=== PATIENT | male | born 1955 | race Two or more races ===

== ENCOUNTER 2020-10-20 12:00 | Outpatient (CLI) | payer MEDICARE | END 2020-10-20 23:59 | disposition home or self-care (01) | LOC: MSC 12:00 | PROVIDERS: ATTEND Internal Medicine | DX: I12.9 Hypertensive chronic kidney disease with stage 1 through stage 4 chronic kidney disease, or unspecified chronic kidney disease (principal); N18.32 Chronic kidney disease, stage 3b; N17.9 Acute kidney failure, unspecified; E87.1 Hypo-osmolality and hyponatremia; F10.10 Alcohol abuse, uncomplicated; D64.9 Anemia, unspecified; E83.9 Disorder of mineral metabolism, unspecified; M10.9 Gout, unspecified; M95.9 Acquired deformity of musculoskeletal system, unspecified ==

== ENCOUNTER → 2020-11-10 | Outpatient (CLI) | payer MEDICARE | END | disposition home or self-care (01) | LOC: MSC 15:00 | PROVIDERS: ATTEND Internal Medicine | DX: I12.9 Hypertensive chronic kidney disease with stage 1 through stage 4 chronic kidney disease, or unspecified chronic kidney disease (principal); N18.4 Chronic kidney disease, stage 4 (severe); N17.9 Acute kidney failure, unspecified; E87.1 Hypo-osmolality and hyponatremia; E87.6 Hypokalemia; D64.9 Anemia, unspecified; E83.9 Disorder of mineral metabolism, unspecified; M10.9 Gout, unspecified; M20.60 Acquired deformities of toe(s), unspecified, unspecified foot; F10.10 Alcohol abuse, uncomplicated; R53.81 Other malaise; Z79.899 Other long term (current) drug therapy ==

== ENCOUNTER 2020-11-24 12:00 | Outpatient (CLI) | payer MEDICARE | END 2020-11-24 23:59 | disposition home or self-care (01) | LOC: MSC 12:00 | PROVIDERS: ATTEND Internal Medicine | DX: K58.9 Irritable bowel syndrome, unspecified (principal); I12.9 Hypertensive chronic kidney disease with stage 1 through stage 4 chronic kidney disease, or unspecified chronic kidney disease; N18.32 Chronic kidney disease, stage 3b; N17.9 Acute kidney failure, unspecified; E87.1 Hypo-osmolality and hyponatremia; E87.6 Hypokalemia; D64.9 Anemia, unspecified; E83.9 Disorder of mineral metabolism, unspecified; M10.9 Gout, unspecified; M95.9 Acquired deformity of musculoskeletal system, unspecified; F10.10 Alcohol abuse, uncomplicated; R53.81 Other malaise ==

== ENCOUNTER 2020-12-29 09:00 | Outpatient (CLI) | payer MEDICARE ==
[2020-12-29 10:40] LABS: BASOPHILS # (AUTO) 0.1 K/uL (0.0-0.2); EOSINOPHILS % (AUTO) 4.4 % (0.0-6.0); HEMATOCRIT 38 % (39-51); HEMOGLOBIN 12.6 g/dL (13.5-17.5); LYMPHOCYTES # (AUTO) 1.4 K/uL (0.8-4.8); MEAN CORPUSCULAR HGB CONC 33 g/dl (31.0-36.0); MEAN CORPUSCULAR VOLUME 89 fL (80-96); MONOCYTES # (AUTO) 0.4 K/uL (0.1-1.30); MONOCYTES % (AUTO) 4.6 % (2.0-12.0); NEUTROPHILS # (AUTO) 5.5 K/uL (1.8-8.9); PLATELET COUNT (AUTO) 488 K/uL (150-450); RED BLOOD CELL COUNT(AUTO) 4.25 MIL/uL (4.5-6.0); WHITE BLOOD COUNT (AUTO) 7.6 K/uL (4.3-11.0)
[2020-12-29 11:56] LABS: THYROID STIMULATING HORMONE 2.99 uIU/mL (0.358-3.74); URIC ACID 9.7 mg/dL (2.6-7.2)
[2020-12-29 12:02] LABS: BILIRUBIN,TOTAL 0.5 mg/dL (0.2-1.0); CREATININE 1.3 mg/dL (0.6-1.3); MAGNESIUM 1.7 mg/dL (1.8-2.4); PHOSPHORUS 2.9 mg/dL (2.5-4.9); POTASSIUM 3.7 mmol/L (3.5-5.1); TOTAL PROTEIN, SERUM 7.9 g/dL (6.4-8.2)
[2020-12-29 12:17] LABS: C-REACTIVE PROTEIN 11.2 mg/dL (0.0-0.9)
== END 2020-12-29 23:59 | disposition home or self-care (01) ==
LOC: MSC 09:00
PROVIDERS: ATTEND Internal Medicine
DX: K58.9 Irritable bowel syndrome, unspecified (principal); I12.9 Hypertensive chronic kidney disease with stage 1 through stage 4 chronic kidney disease, or unspecified chronic kidney disease; N18.32 Chronic kidney disease, stage 3b; N17.9 Acute kidney failure, unspecified; E87.6 Hypokalemia; D64.9 Anemia, unspecified; E83.9 Disorder of mineral metabolism, unspecified; M10.9 Gout, unspecified; M21.90 Unspecified acquired deformity of unspecified limb; F10.129 Alcohol abuse with intoxication, unspecified; R53.81 Other malaise
CPT/HCPCS: 36415; 80053; 80061; 82306; 82607; 83036; 83735; 84100; 84443; 84550; 85025; 85652; 86140; G0463

== ENCOUNTER → 2021-01-11 | Outpatient (CLI) | payer MEDICARE | END | disposition home or self-care (01) | LOC: MSC 14:45 | PROVIDERS: ATTEND Internal Medicine | DX: M10.9 Gout, unspecified (principal); M20.60 Acquired deformities of toe(s), unspecified, unspecified foot; K58.1 Irritable bowel syndrome with constipation; I12.9 Hypertensive chronic kidney disease with stage 1 through stage 4 chronic kidney disease, or unspecified chronic kidney disease; N18.4 Chronic kidney disease, stage 4 (severe); N17.9 Acute kidney failure, unspecified; E87.6 Hypokalemia; D64.9 Anemia, unspecified; E83.9 Disorder of mineral metabolism, unspecified; F10.10 Alcohol abuse, uncomplicated; R53.81 Other malaise; Z79.84 Long term (current) use of oral hypoglycemic drugs; Z79.899 Other long term (current) drug therapy ==

== ENCOUNTER 2021-01-24 14:00 | Outpatient (CLI) | payer MEDICARE | END 2021-01-24 23:59 | disposition home or self-care (01) | LOC: MSC 14:00 | PROVIDERS: ATTEND Internal Medicine | DX: R10.13 Epigastric pain (principal); R05 Cough; M10.9 Gout, unspecified; M20.60 Acquired deformities of toe(s), unspecified, unspecified foot; K59.00 Constipation, unspecified; K58.1 Irritable bowel syndrome with constipation; I12.9 Hypertensive chronic kidney disease with stage 1 through stage 4 chronic kidney disease, or unspecified chronic kidney disease; N18.4 Chronic kidney disease, stage 4 (severe); N17.9 Acute kidney failure, unspecified; E87.6 Hypokalemia; D64.9 Anemia, unspecified; E83.9 Disorder of mineral metabolism, unspecified; F10.10 Alcohol abuse, uncomplicated; R53.81 Other malaise; Z79.84 Long term (current) use of oral hypoglycemic drugs; Z79.899 Other long term (current) drug therapy ==

== ENCOUNTER 2021-01-31 10:00 | Outpatient (CLI) | payer MEDICARE | END 2021-01-31 23:59 | disposition home or self-care (01) | LOC: MSC 10:00 | PROVIDERS: ATTEND Internal Medicine | DX: R05 Cough (principal); Z86.16 Personal history of COVID-19; R10.13 Epigastric pain; M10.9 Gout, unspecified; M20.60 Acquired deformities of toe(s), unspecified, unspecified foot; K59.00 Constipation, unspecified; K58.8 Other irritable bowel syndrome; I12.9 Hypertensive chronic kidney disease with stage 1 through stage 4 chronic kidney disease, or unspecified chronic kidney disease; N18.4 Chronic kidney disease, stage 4 (severe); N17.9 Acute kidney failure, unspecified; E87.6 Hypokalemia; D64.9 Anemia, unspecified; E83.9 Disorder of mineral metabolism, unspecified; F10.10 Alcohol abuse, uncomplicated; R53.81 Other malaise; Z79.84 Long term (current) use of oral hypoglycemic drugs; Z79.899 Other long term (current) drug therapy ==

== ENCOUNTER → 2021-02-07 | Outpatient (CLI) | payer MEDICARE, OTHER | END | disposition home or self-care (01) | LOC: MSC 10:00 | PROVIDERS: ATTEND Internal Medicine | DX: A04.9 Bacterial intestinal infection, unspecified (principal); Z86.16 Personal history of COVID-19; R10.13 Epigastric pain; M10.9 Gout, unspecified; M20.60 Acquired deformities of toe(s), unspecified, unspecified foot; R05 Cough; K59.00 Constipation, unspecified; K58.9 Irritable bowel syndrome, unspecified; I12.9 Hypertensive chronic kidney disease with stage 1 through stage 4 chronic kidney disease, or unspecified chronic kidney disease; N18.4 Chronic kidney disease, stage 4 (severe); N17.9 Acute kidney failure, unspecified; E87.6 Hypokalemia; D64.9 Anemia, unspecified; E83.9 Disorder of mineral metabolism, unspecified; F10.10 Alcohol abuse, uncomplicated; R53.81 Other malaise; Z79.84 Long term (current) use of oral hypoglycemic drugs; Z79.899 Other long term (current) drug therapy ==

== ENCOUNTER → 2021-02-14 | Outpatient (CLI) | payer MEDICARE, OTHER | END | disposition home or self-care (01) | LOC: MSC 14:45 | PROVIDERS: ATTEND Internal Medicine | DX: A04.9 Bacterial intestinal infection, unspecified (principal); Z86.16 Personal history of COVID-19; R10.13 Epigastric pain; M10.9 Gout, unspecified; M20.60 Acquired deformities of toe(s), unspecified, unspecified foot; R05 Cough; K59.00 Constipation, unspecified; K58.9 Irritable bowel syndrome, unspecified; I12.9 Hypertensive chronic kidney disease with stage 1 through stage 4 chronic kidney disease, or unspecified chronic kidney disease; N18.4 Chronic kidney disease, stage 4 (severe); N17.9 Acute kidney failure, unspecified; E87.6 Hypokalemia; D64.9 Anemia, unspecified; E83.9 Disorder of mineral metabolism, unspecified; F10.10 Alcohol abuse, uncomplicated; R53.81 Other malaise; Z79.84 Long term (current) use of oral hypoglycemic drugs; Z79.899 Other long term (current) drug therapy ==

== ENCOUNTER 2021-02-21 10:15 | Outpatient (CLI) | payer MEDICARE, OTHER | END 2021-02-21 23:59 | disposition home or self-care (01) | LOC: MSC 10:15 | PROVIDERS: ATTEND Internal Medicine | DX: A04.9 Bacterial intestinal infection, unspecified (principal); Z86.16 Personal history of COVID-19; R10.13 Epigastric pain; M10.9 Gout, unspecified; M20.60 Acquired deformities of toe(s), unspecified, unspecified foot; R05.9 Cough, unspecified; K59.00 Constipation, unspecified; K58.9 Irritable bowel syndrome, unspecified; I12.9 Hypertensive chronic kidney disease with stage 1 through stage 4 chronic kidney disease, or unspecified chronic kidney disease; N18.4 Chronic kidney disease, stage 4 (severe); N17.9 Acute kidney failure, unspecified; E87.6 Hypokalemia; D64.9 Anemia, unspecified; E83.9 Disorder of mineral metabolism, unspecified; F10.10 Alcohol abuse, uncomplicated; R53.81 Other malaise; Z79.84 Long term (current) use of oral hypoglycemic drugs; Z79.899 Other long term (current) drug therapy ==

== ENCOUNTER → 2021-03-02 | Outpatient (CLI) | payer MEDICARE, OTHER | END | disposition home or self-care (01) | LOC: MSC 14:00 | PROVIDERS: ATTEND Internal Medicine | DX: A04.9 Bacterial intestinal infection, unspecified (principal); Z86.16 Personal history of COVID-19; R10.13 Epigastric pain; M10.9 Gout, unspecified; M20.60 Acquired deformities of toe(s), unspecified, unspecified foot; R05.9 Cough, unspecified; K59.00 Constipation, unspecified; K58.9 Irritable bowel syndrome, unspecified; I12.9 Hypertensive chronic kidney disease with stage 1 through stage 4 chronic kidney disease, or unspecified chronic kidney disease; N18.4 Chronic kidney disease, stage 4 (severe); N17.9 Acute kidney failure, unspecified; E87.6 Hypokalemia; D64.9 Anemia, unspecified; E83.9 Disorder of mineral metabolism, unspecified; M89.9 Disorder of bone, unspecified; F10.10 Alcohol abuse, uncomplicated; R53.81 Other malaise; Z79.84 Long term (current) use of oral hypoglycemic drugs; Z79.899 Other long term (current) drug therapy ==

== ENCOUNTER → 2021-03-21 | Outpatient (CLI) | payer MEDICARE, OTHER | END | disposition home or self-care (01) | LOC: MSC 14:30 | PROVIDERS: ATTEND Internal Medicine | DX: S91.109A Unspecified open wound of unspecified toe(s) without damage to nail, initial encounter (principal); A04.9 Bacterial intestinal infection, unspecified; Z86.16 Personal history of COVID-19; R10.13 Epigastric pain; M10.9 Gout, unspecified; M20.60 Acquired deformities of toe(s), unspecified, unspecified foot; R05.9 Cough, unspecified; K59.00 Constipation, unspecified; I12.9 Hypertensive chronic kidney disease with stage 1 through stage 4 chronic kidney disease, or unspecified chronic kidney disease; N18.4 Chronic kidney disease, stage 4 (severe); N17.9 Acute kidney failure, unspecified; K58.9 Irritable bowel syndrome, unspecified; E87.6 Hypokalemia; D64.9 Anemia, unspecified; E83.9 Disorder of mineral metabolism, unspecified; M89.9 Disorder of bone, unspecified; F10.10 Alcohol abuse, uncomplicated; R53.81 Other malaise; Z79.84 Long term (current) use of oral hypoglycemic drugs; Z79.899 Other long term (current) drug therapy ==

== ENCOUNTER 2021-03-31 13:00 | Outpatient (CLI) | payer MEDICARE, OTHER | END 2021-03-31 23:59 | disposition home or self-care (01) | LOC: MSC 13:00 | PROVIDERS: ATTEND Internal Medicine | DX: R10.13 Epigastric pain (principal); A04.9 Bacterial intestinal infection, unspecified; Z86.16 Personal history of COVID-19; M10.9 Gout, unspecified; M20.60 Acquired deformities of toe(s), unspecified, unspecified foot; R05.9 Cough, unspecified; K59.00 Constipation, unspecified; K58.9 Irritable bowel syndrome, unspecified; I12.9 Hypertensive chronic kidney disease with stage 1 through stage 4 chronic kidney disease, or unspecified chronic kidney disease; N18.4 Chronic kidney disease, stage 4 (severe); N17.9 Acute kidney failure, unspecified; E87.6 Hypokalemia; D64.9 Anemia, unspecified; E83.9 Disorder of mineral metabolism, unspecified; M89.9 Disorder of bone, unspecified; F10.10 Alcohol abuse, uncomplicated; R53.81 Other malaise; Z79.84 Long term (current) use of oral hypoglycemic drugs; Z79.899 Other long term (current) drug therapy ==

== ENCOUNTER 2021-04-18 09:30 | Outpatient (CLI) | payer MEDICARE, OTHER | END 2021-04-18 23:59 | disposition home or self-care (01) | LOC: MSC 09:30 | PROVIDERS: ATTEND Internal Medicine | DX: A04.9 Bacterial intestinal infection, unspecified (principal); M54.9 Dorsalgia, unspecified; Z86.16 Personal history of COVID-19; M10.9 Gout, unspecified; M20.60 Acquired deformities of toe(s), unspecified, unspecified foot; K58.9 Irritable bowel syndrome, unspecified; I12.9 Hypertensive chronic kidney disease with stage 1 through stage 4 chronic kidney disease, or unspecified chronic kidney disease; N18.4 Chronic kidney disease, stage 4 (severe); N17.9 Acute kidney failure, unspecified; D64.9 Anemia, unspecified; E83.9 Disorder of mineral metabolism, unspecified; M89.9 Disorder of bone, unspecified; F10.10 Alcohol abuse, uncomplicated; R53.81 Other malaise; Z79.84 Long term (current) use of oral hypoglycemic drugs; Z79.899 Other long term (current) drug therapy ==

== ENCOUNTER 2021-04-28 09:57 | Outpatient (CLI) | payer MEDICARE, OTHER | END 2021-04-28 23:59 | disposition home or self-care (01) | LOC: CT 09:57 | PROVIDERS: ATTEND Internal Medicine | DX: K40.90 Unilateral inguinal hernia, without obstruction or gangrene, not specified as recurrent (principal); N28.1 Cyst of kidney, acquired; K59.00 Constipation, unspecified; K57.90 Diverticulosis of intestine, part unspecified, without perforation or abscess without bleeding; M47.819 Spondylosis without myelopathy or radiculopathy, site unspecified; Z96.642 Presence of left artificial hip joint ==

== ENCOUNTER → 2021-05-01 | Outpatient (CLI) | payer MEDICARE, OTHER | END | disposition home or self-care (01) | LOC: MSC 16:45 | PROVIDERS: ATTEND Internal Medicine | DX: N28.89 Other specified disorders of kidney and ureter (principal); M54.9 Dorsalgia, unspecified; A04.9 Bacterial intestinal infection, unspecified; Z86.16 Personal history of COVID-19; R10.13 Epigastric pain; M10.9 Gout, unspecified; M20.60 Acquired deformities of toe(s), unspecified, unspecified foot; R05.9 Cough, unspecified; K59.00 Constipation, unspecified; K58.9 Irritable bowel syndrome, unspecified; I12.9 Hypertensive chronic kidney disease with stage 1 through stage 4 chronic kidney disease, or unspecified chronic kidney disease; N18.4 Chronic kidney disease, stage 4 (severe); N17.9 Acute kidney failure, unspecified; E87.6 Hypokalemia; D64.9 Anemia, unspecified; E83.9 Disorder of mineral metabolism, unspecified; M89.9 Disorder of bone, unspecified; F10.10 Alcohol abuse, uncomplicated; R53.81 Other malaise; Z79.84 Long term (current) use of oral hypoglycemic drugs; Z79.899 Other long term (current) drug therapy ==

== ENCOUNTER → 2021-05-03 | Outpatient (CLI) | payer MEDICARE, OTHER | END | disposition home or self-care (01) | LOC: MSC 14:30 | PROVIDERS: ATTEND Internal Medicine | DX: N28.89 Other specified disorders of kidney and ureter (principal); A04.9 Bacterial intestinal infection, unspecified; M54.9 Dorsalgia, unspecified; Z86.16 Personal history of COVID-19; R10.13 Epigastric pain; M10.9 Gout, unspecified; M20.60 Acquired deformities of toe(s), unspecified, unspecified foot; K59.00 Constipation, unspecified; K58.9 Irritable bowel syndrome, unspecified; I12.9 Hypertensive chronic kidney disease with stage 1 through stage 4 chronic kidney disease, or unspecified chronic kidney disease; N18.4 Chronic kidney disease, stage 4 (severe); N17.9 Acute kidney failure, unspecified; E87.6 Hypokalemia; D64.9 Anemia, unspecified; E83.9 Disorder of mineral metabolism, unspecified; M89.9 Disorder of bone, unspecified; F10.10 Alcohol abuse, uncomplicated; R53.81 Other malaise; Z79.84 Long term (current) use of oral hypoglycemic drugs; Z79.899 Other long term (current) drug therapy ==

== ENCOUNTER 2021-05-09 09:33 | Outpatient (CLI) | payer MEDICARE, OTHER ==
[2021-05-09] MEDS ORDERED: IV NS 0.9% 250 ML IV ONE (10:01)
[2021-05-09] MEDS ORDERED: IOHEXOL-350 100 ML VIAL IV ONE (10:01)
[2021-05-09] MEDS ORDERED: CT SWABBABLE VALVE TRANS SET 1 EA INFUS.SET MC ONE (10:01)
== END 2021-05-09 23:59 | disposition home or self-care (01) ==
LOC: CT 09:33
PROVIDERS: ATTEND Internal Medicine
DX: N28.1 Cyst of kidney, acquired (principal); K57.30 Diverticulosis of large intestine without perforation or abscess without bleeding; N28.89 Other specified disorders of kidney and ureter; M47.815 Spondylosis without myelopathy or radiculopathy, thoracolumbar region; M48.05 Spinal stenosis, thoracolumbar region; Z96.642 Presence of left artificial hip joint
CPT/HCPCS: 74178; J7050; Q9967

== ENCOUNTER 2021-05-16 14:00 | Outpatient (CLI) | payer MEDICARE, OTHER | END 2021-05-16 23:59 | disposition home or self-care (01) | LOC: MSC 14:00 | PROVIDERS: ATTEND Internal Medicine | DX: N28.89 Other specified disorders of kidney and ureter (principal); M54.9 Dorsalgia, unspecified; A04.9 Bacterial intestinal infection, unspecified; Z86.16 Personal history of COVID-19; R10.13 Epigastric pain; M10.9 Gout, unspecified; M20.60 Acquired deformities of toe(s), unspecified, unspecified foot; K59.00 Constipation, unspecified; K58.9 Irritable bowel syndrome, unspecified; I12.9 Hypertensive chronic kidney disease with stage 1 through stage 4 chronic kidney disease, or unspecified chronic kidney disease; N18.4 Chronic kidney disease, stage 4 (severe); N17.9 Acute kidney failure, unspecified; E87.6 Hypokalemia; D64.9 Anemia, unspecified; E83.9 Disorder of mineral metabolism, unspecified; M89.9 Disorder of bone, unspecified; F10.10 Alcohol abuse, uncomplicated; R53.81 Other malaise; Z79.84 Long term (current) use of oral hypoglycemic drugs; Z79.899 Other long term (current) drug therapy ==

== ENCOUNTER → 2021-05-25 | Outpatient (CLI) | payer MEDICARE, OTHER | END | disposition home or self-care (01) | LOC: MSC 14:00 | PROVIDERS: ATTEND Internal Medicine | DX: A04.9 Bacterial intestinal infection, unspecified (principal); R10.13 Epigastric pain; N28.89 Other specified disorders of kidney and ureter; M54.9 Dorsalgia, unspecified; Z86.16 Personal history of COVID-19; M10.9 Gout, unspecified; M20.60 Acquired deformities of toe(s), unspecified, unspecified foot; K59.00 Constipation, unspecified; K58.9 Irritable bowel syndrome, unspecified; I12.9 Hypertensive chronic kidney disease with stage 1 through stage 4 chronic kidney disease, or unspecified chronic kidney disease; N18.4 Chronic kidney disease, stage 4 (severe); N17.9 Acute kidney failure, unspecified; D64.9 Anemia, unspecified; E83.9 Disorder of mineral metabolism, unspecified; M89.9 Disorder of bone, unspecified; F10.10 Alcohol abuse, uncomplicated; R53.81 Other malaise; Z79.84 Long term (current) use of oral hypoglycemic drugs; Z79.899 Other long term (current) drug therapy ==

== ENCOUNTER 2021-06-06 10:15 | Outpatient (CLI) | payer MEDICARE, OTHER | END 2021-06-06 23:59 | disposition home or self-care (01) | LOC: MSC 10:15 | PROVIDERS: ATTEND Internal Medicine | DX: R10.13 Epigastric pain (principal); R14.0 Abdominal distension (gaseous); A04.9 Bacterial intestinal infection, unspecified; N28.89 Other specified disorders of kidney and ureter; M54.9 Dorsalgia, unspecified; Z86.16 Personal history of COVID-19; M10.9 Gout, unspecified; M20.60 Acquired deformities of toe(s), unspecified, unspecified foot; K59.00 Constipation, unspecified; K58.9 Irritable bowel syndrome, unspecified; I12.9 Hypertensive chronic kidney disease with stage 1 through stage 4 chronic kidney disease, or unspecified chronic kidney disease; N18.4 Chronic kidney disease, stage 4 (severe); N17.9 Acute kidney failure, unspecified; E87.6 Hypokalemia; D64.9 Anemia, unspecified; E83.9 Disorder of mineral metabolism, unspecified; M89.9 Disorder of bone, unspecified; F10.10 Alcohol abuse, uncomplicated; R53.81 Other malaise ==

== ENCOUNTER 2021-06-15 14:30 | Outpatient (CLI) | payer MEDICARE, OTHER | END 2021-06-15 23:59 | disposition home or self-care (01) | LOC: MSC 14:30 | PROVIDERS: ATTEND Internal Medicine | DX: N28.89 Other specified disorders of kidney and ureter (principal); K40.90 Unilateral inguinal hernia, without obstruction or gangrene, not specified as recurrent; M54.9 Dorsalgia, unspecified; Z86.16 Personal history of COVID-19; R10.13 Epigastric pain; M10.9 Gout, unspecified; M20.60 Acquired deformities of toe(s), unspecified, unspecified foot; K59.00 Constipation, unspecified; K58.9 Irritable bowel syndrome, unspecified; I12.9 Hypertensive chronic kidney disease with stage 1 through stage 4 chronic kidney disease, or unspecified chronic kidney disease; N18.4 Chronic kidney disease, stage 4 (severe); N17.9 Acute kidney failure, unspecified; D64.9 Anemia, unspecified; E83.9 Disorder of mineral metabolism, unspecified; M89.9 Disorder of bone, unspecified; F10.10 Alcohol abuse, uncomplicated; R53.81 Other malaise ==

== ENCOUNTER → 2021-06-22 | Outpatient (CLI) | payer MEDICARE, OTHER | END | disposition home or self-care (01) | LOC: MSC 12:00 | PROVIDERS: ATTEND Internal Medicine | DX: R10.13 Epigastric pain (principal); K40.90 Unilateral inguinal hernia, without obstruction or gangrene, not specified as recurrent; G89.29 Other chronic pain; A04.9 Bacterial intestinal infection, unspecified; N28.89 Other specified disorders of kidney and ureter; M54.9 Dorsalgia, unspecified; Z86.16 Personal history of COVID-19; M10.9 Gout, unspecified; M20.60 Acquired deformities of toe(s), unspecified, unspecified foot; K59.00 Constipation, unspecified; K58.9 Irritable bowel syndrome, unspecified; I12.9 Hypertensive chronic kidney disease with stage 1 through stage 4 chronic kidney disease, or unspecified chronic kidney disease; N18.4 Chronic kidney disease, stage 4 (severe); N17.9 Acute kidney failure, unspecified; D64.9 Anemia, unspecified; E83.9 Disorder of mineral metabolism, unspecified; M89.9 Disorder of bone, unspecified; F10.10 Alcohol abuse, uncomplicated; R53.81 Other malaise ==

== ENCOUNTER 2021-07-04 09:00 | Outpatient (CLI) | payer MEDICARE, OTHER | END 2021-07-04 23:59 | disposition home or self-care (01) | LOC: MSC 09:00 | PROVIDERS: ATTEND Internal Medicine | DX: M10.9 Gout, unspecified (principal); M21.90 Unspecified acquired deformity of unspecified limb; R10.13 Epigastric pain; G89.29 Other chronic pain; A04.9 Bacterial intestinal infection, unspecified; N28.89 Other specified disorders of kidney and ureter; M54.9 Dorsalgia, unspecified; K40.90 Unilateral inguinal hernia, without obstruction or gangrene, not specified as recurrent; K50.90 Crohn's disease, unspecified, without complications; Z86.16 Personal history of COVID-19; K59.00 Constipation, unspecified; I12.9 Hypertensive chronic kidney disease with stage 1 through stage 4 chronic kidney disease, or unspecified chronic kidney disease; N18.4 Chronic kidney disease, stage 4 (severe); N17.9 Acute kidney failure, unspecified; D64.9 Anemia, unspecified; E83.9 Disorder of mineral metabolism, unspecified; M89.9 Disorder of bone, unspecified; F10.10 Alcohol abuse, uncomplicated; R53.81 Other malaise ==

== ENCOUNTER → 2021-07-06 | Outpatient (CLI) | payer MEDICARE, OTHER | END | disposition home or self-care (01) | LOC: MSC 14:00 | PROVIDERS: ATTEND Internal Medicine | DX: L29.9 Pruritus, unspecified (principal); R10.13 Epigastric pain; M10.9 Gout, unspecified; M21.90 Unspecified acquired deformity of unspecified limb; G89.29 Other chronic pain; A04.9 Bacterial intestinal infection, unspecified; N28.89 Other specified disorders of kidney and ureter; M54.9 Dorsalgia, unspecified; K40.90 Unilateral inguinal hernia, without obstruction or gangrene, not specified as recurrent; K50.90 Crohn's disease, unspecified, without complications; Z86.16 Personal history of COVID-19; K59.00 Constipation, unspecified; I12.9 Hypertensive chronic kidney disease with stage 1 through stage 4 chronic kidney disease, or unspecified chronic kidney disease; N18.4 Chronic kidney disease, stage 4 (severe); N17.9 Acute kidney failure, unspecified; D64.9 Anemia, unspecified; E83.9 Disorder of mineral metabolism, unspecified; M89.9 Disorder of bone, unspecified; F10.10 Alcohol abuse, uncomplicated; R53.81 Other malaise ==

== ENCOUNTER 2021-07-20 11:30 | Outpatient (CLI) | payer MEDICARE, OTHER | END 2021-07-20 23:59 | disposition home or self-care (01) | LOC: MSC 11:30 | PROVIDERS: ATTEND Internal Medicine | DX: K59.00 Constipation, unspecified (principal); R10.13 Epigastric pain; M10.9 Gout, unspecified; M21.90 Unspecified acquired deformity of unspecified limb; G89.29 Other chronic pain; A04.9 Bacterial intestinal infection, unspecified; N28.89 Other specified disorders of kidney and ureter; M54.9 Dorsalgia, unspecified; K40.90 Unilateral inguinal hernia, without obstruction or gangrene, not specified as recurrent; Z86.16 Personal history of COVID-19; K58.9 Irritable bowel syndrome, unspecified; I12.9 Hypertensive chronic kidney disease with stage 1 through stage 4 chronic kidney disease, or unspecified chronic kidney disease; N18.4 Chronic kidney disease, stage 4 (severe); N17.9 Acute kidney failure, unspecified; D64.9 Anemia, unspecified; E83.9 Disorder of mineral metabolism, unspecified; M89.9 Disorder of bone, unspecified; F10.10 Alcohol abuse, uncomplicated; R53.81 Other malaise ==

== ENCOUNTER 2021-07-25 10:42 | Outpatient (CLI) | payer MEDICARE, OTHER ==
[2021-07-25 12:13] LABS: BASOPHILS % (AUTO) 0.3 % (0.0-2.0); EOSINOPHILS % (AUTO) 3.2 % (0.0-6.0); HEMATOCRIT 44 % (39-51); HEMOGLOBIN 14.2 g/dL (13.5-17.5); LYMPHOCYTES # (AUTO) 2.1 K/uL (0.8-4.8); LYMPHOCYTES % (AUTO) 26.6 % (20.0-44.0); MEAN CORPUSCULAR HGB CONC 32 g/dl (31.0-36.0); MEAN CORPUSCULAR VOLUME 84 fL (80-96); MONOCYTES # (AUTO) 0.3 K/uL (0.1-1.30); MONOCYTES % (AUTO) 4.3 % (2.0-12.0); NEUTROPHILS # (AUTO) 5.3 K/uL (1.8-8.9); NEUTROPHILS % (AUTO) 65.6 % (43.0-81.0); PLATELET COUNT (AUTO) 344 K/uL (150-450); RED BLOOD CELL COUNT(AUTO) 5.23 MIL/uL (4.5-6.0)
[2021-07-25 12:44] LABS: C-REACTIVE PROTEIN 0.2 mg/dL (0.0-0.9); FREE T4 (FREE THYROXINE) 0.87 ng/dL (0.76-1.46); THYROID STIMULATING HORMONE 3.598 uIU/mL (0.358-3.74); URIC ACID 7.4 mg/dL (2.6-7.2)
[2021-07-25 12:58] LABS: ALBUMIN 3.8 g/dL (3.4-5.0); BILIRUBIN,TOTAL 0.4 mg/dL (0.2-1.0); CALCIUM, SERUM 9.2 mg/dL (8.5-10.1); CREATININE 1.4 mg/dL (0.6-1.3); MAGNESIUM 2.3 mg/dL (1.8-2.4); PHOSPHORUS 3.2 mg/dL (2.5-4.9); POTASSIUM 3.9 mmol/L (3.5-5.1); TOTAL PROTEIN, SERUM 8.5 g/dL (6.4-8.2)
== END 2021-07-25 23:59 | disposition home or self-care (01) ==
LOC: MSC 10:42
PROVIDERS: ATTEND Internal Medicine
DX: R42 Dizziness and giddiness (principal); M10.9 Gout, unspecified; M21.90 Unspecified acquired deformity of unspecified limb; R10.13 Epigastric pain; G89.29 Other chronic pain; A04.9 Bacterial intestinal infection, unspecified; N28.89 Other specified disorders of kidney and ureter; M54.9 Dorsalgia, unspecified; K40.90 Unilateral inguinal hernia, without obstruction or gangrene, not specified as recurrent; Z86.16 Personal history of COVID-19; K58.9 Irritable bowel syndrome, unspecified; I12.9 Hypertensive chronic kidney disease with stage 1 through stage 4 chronic kidney disease, or unspecified chronic kidney disease; N18.4 Chronic kidney disease, stage 4 (severe); N17.9 Acute kidney failure, unspecified; D64.9 Anemia, unspecified; E83.9 Disorder of mineral metabolism, unspecified; M89.9 Disorder of bone, unspecified; F10.10 Alcohol abuse, uncomplicated; R53.81 Other malaise; Z79.899 Other long term (current) drug therapy
CPT/HCPCS: 36415; 80053; 82607; 82746; 83036; 83735; 84100; 84439; 84443; 84550; 85025; 86140; 93005; G0463

== ENCOUNTER 2021-07-31 09:29 | Outpatient (CLI) | payer MEDICARE, OTHER | END 2021-07-31 23:59 | disposition home or self-care (01) | LOC: CT 09:29 | PROVIDERS: ATTEND Internal Medicine | DX: R42 Dizziness and giddiness (principal) | CPT/HCPCS: 70450-TC ==

== ENCOUNTER 2021-08-03 10:30 | Outpatient (CLI) | payer MEDICARE, OTHER | END 2021-08-03 23:59 | disposition home or self-care (01) | LOC: MSC 10:30 | PROVIDERS: ATTEND Internal Medicine | DX: E87.1 Hypo-osmolality and hyponatremia (principal); I12.9 Hypertensive chronic kidney disease with stage 1 through stage 4 chronic kidney disease, or unspecified chronic kidney disease; N18.4 Chronic kidney disease, stage 4 (severe); N17.9 Acute kidney failure, unspecified; M10.9 Gout, unspecified; M21.90 Unspecified acquired deformity of unspecified limb; R10.13 Epigastric pain; G89.29 Other chronic pain; A04.9 Bacterial intestinal infection, unspecified; N28.89 Other specified disorders of kidney and ureter; M54.9 Dorsalgia, unspecified; K40.90 Unilateral inguinal hernia, without obstruction or gangrene, not specified as recurrent; Z86.16 Personal history of COVID-19; K58.9 Irritable bowel syndrome, unspecified; D64.9 Anemia, unspecified; E83.9 Disorder of mineral metabolism, unspecified; M89.9 Disorder of bone, unspecified; F10.10 Alcohol abuse, uncomplicated; R53.81 Other malaise; Z79.899 Other long term (current) drug therapy ==

== ENCOUNTER → 2021-08-15 | Outpatient (CLI) | payer MEDICARE, OTHER | END | disposition home or self-care (01) | LOC: MSC 14:30 | PROVIDERS: ATTEND Internal Medicine | DX: L98.8 Other specified disorders of the skin and subcutaneous tissue (principal); E87.1 Hypo-osmolality and hyponatremia; M10.9 Gout, unspecified; M21.90 Unspecified acquired deformity of unspecified limb; R10.13 Epigastric pain; G89.29 Other chronic pain; A04.9 Bacterial intestinal infection, unspecified; I12.9 Hypertensive chronic kidney disease with stage 1 through stage 4 chronic kidney disease, or unspecified chronic kidney disease; N18.4 Chronic kidney disease, stage 4 (severe); N17.9 Acute kidney failure, unspecified; N28.89 Other specified disorders of kidney and ureter; M54.9 Dorsalgia, unspecified; K40.90 Unilateral inguinal hernia, without obstruction or gangrene, not specified as recurrent; Z86.16 Personal history of COVID-19; K58.9 Irritable bowel syndrome, unspecified; D64.9 Anemia, unspecified; E83.9 Disorder of mineral metabolism, unspecified; M89.9 Disorder of bone, unspecified; F10.10 Alcohol abuse, uncomplicated; R53.81 Other malaise; Z79.899 Other long term (current) drug therapy ==

== ENCOUNTER → 2021-10-10 | Outpatient (CLI) | payer MEDICARE, OTHER | END | disposition home or self-care (01) | LOC: MSC 14:00 | PROVIDERS: ATTEND Internal Medicine | DX: M79.603 Pain in arm, unspecified (principal); M54.2 Cervicalgia; N50.89 Other specified disorders of the male genital organs; L98.8 Other specified disorders of the skin and subcutaneous tissue; E87.1 Hypo-osmolality and hyponatremia; M10.9 Gout, unspecified; M21.90 Unspecified acquired deformity of unspecified limb; R10.13 Epigastric pain; G89.29 Other chronic pain; A04.9 Bacterial intestinal infection, unspecified; I12.9 Hypertensive chronic kidney disease with stage 1 through stage 4 chronic kidney disease, or unspecified chronic kidney disease; N18.4 Chronic kidney disease, stage 4 (severe); N17.9 Acute kidney failure, unspecified; N28.89 Other specified disorders of kidney and ureter; M54.9 Dorsalgia, unspecified; K40.90 Unilateral inguinal hernia, without obstruction or gangrene, not specified as recurrent; Z86.16 Personal history of COVID-19; K58.9 Irritable bowel syndrome, unspecified; D64.9 Anemia, unspecified; E83.9 Disorder of mineral metabolism, unspecified; M89.9 Disorder of bone, unspecified; F10.10 Alcohol abuse, uncomplicated; R53.81 Other malaise; Z79.899 Other long term (current) drug therapy ==

== ENCOUNTER → 2021-10-18 | Outpatient (CLI) | payer MEDICARE, OTHER | END | disposition home or self-care (01) | LOC: MSC 14:00 | PROVIDERS: ATTEND Internal Medicine | DX: R60.0 Localized edema (principal); L98.8 Other specified disorders of the skin and subcutaneous tissue; M10.9 Gout, unspecified; M21.90 Unspecified acquired deformity of unspecified limb; E87.1 Hypo-osmolality and hyponatremia; R10.13 Epigastric pain; G89.29 Other chronic pain; A04.9 Bacterial intestinal infection, unspecified; I12.9 Hypertensive chronic kidney disease with stage 1 through stage 4 chronic kidney disease, or unspecified chronic kidney disease; N18.4 Chronic kidney disease, stage 4 (severe); N17.9 Acute kidney failure, unspecified; N28.89 Other specified disorders of kidney and ureter; M54.9 Dorsalgia, unspecified; K40.90 Unilateral inguinal hernia, without obstruction or gangrene, not specified as recurrent; Z86.16 Personal history of COVID-19; K58.9 Irritable bowel syndrome, unspecified; D64.9 Anemia, unspecified; E83.9 Disorder of mineral metabolism, unspecified; M89.9 Disorder of bone, unspecified; F10.10 Alcohol abuse, uncomplicated; R53.81 Other malaise; Z79.899 Other long term (current) drug therapy ==

== ENCOUNTER → 2021-10-31 | Outpatient (CLI) | payer MEDICARE, OTHER | END | disposition home or self-care (01) | LOC: MSC 15:15 | PROVIDERS: ATTEND Internal Medicine | DX: J06.9 Acute upper respiratory infection, unspecified (principal); R60.0 Localized edema; T14.8XXD Other injury of unspecified body region, subsequent encounter; M10.9 Gout, unspecified; M21.90 Unspecified acquired deformity of unspecified limb; E87.1 Hypo-osmolality and hyponatremia; R10.13 Epigastric pain; G89.29 Other chronic pain; A04.9 Bacterial intestinal infection, unspecified; I12.9 Hypertensive chronic kidney disease with stage 1 through stage 4 chronic kidney disease, or unspecified chronic kidney disease; N18.4 Chronic kidney disease, stage 4 (severe); N17.9 Acute kidney failure, unspecified; N28.89 Other specified disorders of kidney and ureter; M54.9 Dorsalgia, unspecified; K40.90 Unilateral inguinal hernia, without obstruction or gangrene, not specified as recurrent; Z86.16 Personal history of COVID-19; K58.9 Irritable bowel syndrome, unspecified; D64.9 Anemia, unspecified; E83.9 Disorder of mineral metabolism, unspecified; M89.9 Disorder of bone, unspecified; F10.10 Alcohol abuse, uncomplicated; R53.81 Other malaise; Z79.899 Other long term (current) drug therapy ==

== ENCOUNTER → 2021-11-15 | Outpatient (CLI) | payer MEDICARE, OTHER | END | disposition home or self-care (01) | LOC: MSC 14:30 | PROVIDERS: ATTEND Internal Medicine | DX: R14.0 Abdominal distension (gaseous) (principal); R10.13 Epigastric pain; J06.9 Acute upper respiratory infection, unspecified; R60.0 Localized edema; T14.8XXD Other injury of unspecified body region, subsequent encounter; M1A.9XX1 Chronic gout, unspecified, with tophus (tophi); M21.90 Unspecified acquired deformity of unspecified limb; E87.1 Hypo-osmolality and hyponatremia; G89.29 Other chronic pain; A04.9 Bacterial intestinal infection, unspecified; I12.9 Hypertensive chronic kidney disease with stage 1 through stage 4 chronic kidney disease, or unspecified chronic kidney disease; N18.4 Chronic kidney disease, stage 4 (severe); N17.9 Acute kidney failure, unspecified; N28.89 Other specified disorders of kidney and ureter; M54.9 Dorsalgia, unspecified; K40.90 Unilateral inguinal hernia, without obstruction or gangrene, not specified as recurrent; Z86.16 Personal history of COVID-19; K58.9 Irritable bowel syndrome, unspecified; D64.9 Anemia, unspecified; E83.9 Disorder of mineral metabolism, unspecified; M89.9 Disorder of bone, unspecified; F10.10 Alcohol abuse, uncomplicated; R53.81 Other malaise; Z79.899 Other long term (current) drug therapy ==

== ENCOUNTER 2021-11-21 09:00 | Outpatient (CLI) | payer MEDICARE, OTHER | END 2021-11-21 23:59 | disposition home or self-care (01) | LOC: MSC 09:00 | PROVIDERS: ATTEND Internal Medicine | DX: R19.8 Other specified symptoms and signs involving the digestive system and abdomen (principal); R10.13 Epigastric pain; N28.89 Other specified disorders of kidney and ureter; R60.0 Localized edema; T14.8XXD Other injury of unspecified body region, subsequent encounter; M10.9 Gout, unspecified; M21.90 Unspecified acquired deformity of unspecified limb; E87.1 Hypo-osmolality and hyponatremia; G89.29 Other chronic pain; A04.9 Bacterial intestinal infection, unspecified; I12.9 Hypertensive chronic kidney disease with stage 1 through stage 4 chronic kidney disease, or unspecified chronic kidney disease; N18.4 Chronic kidney disease, stage 4 (severe); N17.9 Acute kidney failure, unspecified; M54.9 Dorsalgia, unspecified; K40.90 Unilateral inguinal hernia, without obstruction or gangrene, not specified as recurrent; Z86.16 Personal history of COVID-19; K58.9 Irritable bowel syndrome, unspecified; D64.9 Anemia, unspecified; E83.9 Disorder of mineral metabolism, unspecified; M89.9 Disorder of bone, unspecified; F10.10 Alcohol abuse, uncomplicated; R53.81 Other malaise; Z79.899 Other long term (current) drug therapy ==

== ENCOUNTER 2021-11-28 08:40 | Outpatient (CLI) | payer MEDICARE, OTHER | END 2021-11-28 23:59 | disposition home or self-care (01) | LOC: US 08:40 | PROVIDERS: ATTEND Internal Medicine | DX: K76.0 Fatty (change of) liver, not elsewhere classified (principal); N28.1 Cyst of kidney, acquired | CPT/HCPCS: 76700-TC ==

== ENCOUNTER → 2021-11-29 | Outpatient (CLI) | payer MEDICARE, OTHER | END | disposition home or self-care (01) | LOC: MSC 14:00 | PROVIDERS: ATTEND Internal Medicine | DX: R10.13 Epigastric pain (principal); N28.89 Other specified disorders of kidney and ureter; T14.8XXD Other injury of unspecified body region, subsequent encounter; M10.9 Gout, unspecified; M21.90 Unspecified acquired deformity of unspecified limb; E87.1 Hypo-osmolality and hyponatremia; G89.29 Other chronic pain; A04.9 Bacterial intestinal infection, unspecified; K40.90 Unilateral inguinal hernia, without obstruction or gangrene, not specified as recurrent; I12.9 Hypertensive chronic kidney disease with stage 1 through stage 4 chronic kidney disease, or unspecified chronic kidney disease; N18.4 Chronic kidney disease, stage 4 (severe); N17.9 Acute kidney failure, unspecified; M54.9 Dorsalgia, unspecified; Z86.16 Personal history of COVID-19; K58.9 Irritable bowel syndrome, unspecified; D64.9 Anemia, unspecified; E83.9 Disorder of mineral metabolism, unspecified; M89.9 Disorder of bone, unspecified; F10.10 Alcohol abuse, uncomplicated; R53.81 Other malaise ==

== ENCOUNTER 2021-12-08 08:34 | Outpatient (CLI) | payer MEDICARE, OTHER | END 2021-12-08 23:59 | disposition home or self-care (01) | LOC: CT 08:34 | PROVIDERS: ATTEND Internal Medicine | DX: K57.30 Diverticulosis of large intestine without perforation or abscess without bleeding (principal); N28.89 Other specified disorders of kidney and ureter; K63.89 Other specified diseases of intestine; I70.0 Atherosclerosis of aorta; K40.90 Unilateral inguinal hernia, without obstruction or gangrene, not specified as recurrent; M47.819 Spondylosis without myelopathy or radiculopathy, site unspecified; Z96.642 Presence of left artificial hip joint ==

== ENCOUNTER 2021-12-20 15:00 | Outpatient (CLI) | payer MEDICARE, OTHER | END 2021-12-20 23:59 | disposition home or self-care (01) | LOC: MSC 15:00 | PROVIDERS: ATTEND Internal Medicine | DX: R10.13 Epigastric pain (principal); R14.3 Flatulence; N28.89 Other specified disorders of kidney and ureter; T14.8XXD Other injury of unspecified body region, subsequent encounter; M10.9 Gout, unspecified; M21.90 Unspecified acquired deformity of unspecified limb; E87.1 Hypo-osmolality and hyponatremia; G89.29 Other chronic pain; A04.9 Bacterial intestinal infection, unspecified; K40.90 Unilateral inguinal hernia, without obstruction or gangrene, not specified as recurrent; I12.9 Hypertensive chronic kidney disease with stage 1 through stage 4 chronic kidney disease, or unspecified chronic kidney disease; N18.4 Chronic kidney disease, stage 4 (severe); N17.9 Acute kidney failure, unspecified; M54.9 Dorsalgia, unspecified; Z86.16 Personal history of COVID-19; K58.9 Irritable bowel syndrome, unspecified; D64.9 Anemia, unspecified; E83.9 Disorder of mineral metabolism, unspecified; M89.9 Disorder of bone, unspecified; F10.10 Alcohol abuse, uncomplicated; R53.81 Other malaise ==

== ENCOUNTER 2021-12-25 10:00 | Outpatient (CLI) | payer MEDICARE, OTHER ==
[2021-12-25] MEDS ORDERED: UREA 10% -AHA 4% CREAM 57 GM TUBE ONE (10:27)
== END 2021-12-25 23:59 | disposition home or self-care (01) ==
LOC: WOU 10:00
PROVIDERS: ATTEND Podiatrist Foot & Ankle Surgery
DX: M21.171 Varus deformity, not elsewhere classified, right ankle (principal); M79.671 Pain in right foot; R26.2 Difficulty in walking, not elsewhere classified; M13.871 Other specified arthritis, right ankle and foot
CPT/HCPCS: 73610; 73630; G0463

== ENCOUNTER → 2021-12-27 | Outpatient (CLI) | payer MEDICARE, OTHER | END | disposition home or self-care (01) | LOC: MSC 14:30 | PROVIDERS: ATTEND Internal Medicine | DX: R07.89 Other chest pain (principal); N28.89 Other specified disorders of kidney and ureter; M10.9 Gout, unspecified; M21.90 Unspecified acquired deformity of unspecified limb; E87.1 Hypo-osmolality and hyponatremia; T14.8XXD Other injury of unspecified body region, subsequent encounter; R10.13 Epigastric pain; G89.29 Other chronic pain; A04.9 Bacterial intestinal infection, unspecified; K40.90 Unilateral inguinal hernia, without obstruction or gangrene, not specified as recurrent; M54.9 Dorsalgia, unspecified; I12.9 Hypertensive chronic kidney disease with stage 1 through stage 4 chronic kidney disease, or unspecified chronic kidney disease; N18.4 Chronic kidney disease, stage 4 (severe); N17.9 Acute kidney failure, unspecified; Z86.16 Personal history of COVID-19; K58.9 Irritable bowel syndrome, unspecified; D64.9 Anemia, unspecified; E83.9 Disorder of mineral metabolism, unspecified; M89.9 Disorder of bone, unspecified; F10.10 Alcohol abuse, uncomplicated; R53.81 Other malaise ==

== ENCOUNTER → 2021-12-28 | Outpatient (CLI) | payer MEDICARE, OTHER | END | disposition home or self-care (01) | LOC: MSC 14:30 | PROVIDERS: ATTEND Internal Medicine | DX: R07.89 Other chest pain (principal); N28.89 Other specified disorders of kidney and ureter; M10.9 Gout, unspecified; M21.90 Unspecified acquired deformity of unspecified limb; E87.1 Hypo-osmolality and hyponatremia; R10.13 Epigastric pain; G89.29 Other chronic pain; A04.9 Bacterial intestinal infection, unspecified; K40.90 Unilateral inguinal hernia, without obstruction or gangrene, not specified as recurrent; M54.9 Dorsalgia, unspecified; I12.9 Hypertensive chronic kidney disease with stage 1 through stage 4 chronic kidney disease, or unspecified chronic kidney disease; N18.4 Chronic kidney disease, stage 4 (severe); N17.9 Acute kidney failure, unspecified; Z86.16 Personal history of COVID-19; K58.9 Irritable bowel syndrome, unspecified; D64.9 Anemia, unspecified; E83.9 Disorder of mineral metabolism, unspecified; M89.9 Disorder of bone, unspecified; F10.10 Alcohol abuse, uncomplicated; R53.81 Other malaise ==

== ENCOUNTER → 2022-01-04 | Outpatient (CLI) | payer MEDICARE, OTHER | END | disposition home or self-care (01) | LOC: WOU 10:45 | PROVIDERS: ATTEND Podiatrist Foot & Ankle Surgery | DX: R23.8 Other skin changes (principal); M21.171 Varus deformity, not elsewhere classified, right ankle; M79.671 Pain in right foot; R26.2 Difficulty in walking, not elsewhere classified; I10 Essential (primary) hypertension | CPT/HCPCS: G0463 ==

== ENCOUNTER 2022-01-08 09:31 | Outpatient (CLI) | payer MEDICARE, OTHER | END 2022-01-08 23:59 | disposition home or self-care (01) | LOC: WOU 09:31 | PROVIDERS: ATTEND Podiatrist Foot & Ankle Surgery | DX: L60.3 Nail dystrophy (principal); R23.8 Other skin changes; M21.171 Varus deformity, not elsewhere classified, right ankle; M79.671 Pain in right foot; K58.9 Irritable bowel syndrome, unspecified; Z79.899 Other long term (current) drug therapy; Z88.0 Allergy status to penicillin; M10.9 Gout, unspecified; I10 Essential (primary) hypertension | CPT/HCPCS: G0463 ==

== ENCOUNTER 2022-01-24 15:00 | Outpatient (CLI) | payer MEDICARE, OTHER | END 2022-01-24 23:59 | disposition home or self-care (01) | LOC: MSC 15:00 | PROVIDERS: ATTEND Internal Medicine | DX: Z51.89 Encounter for other specified aftercare (principal); N28.89 Other specified disorders of kidney and ureter; M21.962 Unspecified acquired deformity of left lower leg; M10.9 Gout, unspecified; M21.90 Unspecified acquired deformity of unspecified limb; E87.1 Hypo-osmolality and hyponatremia; R10.13 Epigastric pain; G89.29 Other chronic pain; A04.9 Bacterial intestinal infection, unspecified; K40.90 Unilateral inguinal hernia, without obstruction or gangrene, not specified as recurrent; M54.9 Dorsalgia, unspecified; I12.9 Hypertensive chronic kidney disease with stage 1 through stage 4 chronic kidney disease, or unspecified chronic kidney disease; N18.4 Chronic kidney disease, stage 4 (severe); N17.9 Acute kidney failure, unspecified; Z86.16 Personal history of COVID-19; K58.9 Irritable bowel syndrome, unspecified; D64.9 Anemia, unspecified; E83.9 Disorder of mineral metabolism, unspecified; M89.9 Disorder of bone, unspecified; F10.10 Alcohol abuse, uncomplicated; R53.81 Other malaise ==

== ENCOUNTER → 2022-02-02 | Outpatient (CLI) | payer MEDICARE, OTHER | END | disposition home or self-care (01) | LOC: MSC 14:30 | PROVIDERS: ATTEND Internal Medicine | DX: R10.13 Epigastric pain (principal); A04.9 Bacterial intestinal infection, unspecified; N28.89 Other specified disorders of kidney and ureter; M21.962 Unspecified acquired deformity of left lower leg; M10.9 Gout, unspecified; M21.90 Unspecified acquired deformity of unspecified limb; E87.1 Hypo-osmolality and hyponatremia; G89.29 Other chronic pain; K40.90 Unilateral inguinal hernia, without obstruction or gangrene, not specified as recurrent; M54.9 Dorsalgia, unspecified; I12.9 Hypertensive chronic kidney disease with stage 1 through stage 4 chronic kidney disease, or unspecified chronic kidney disease; N18.4 Chronic kidney disease, stage 4 (severe); N17.9 Acute kidney failure, unspecified; Z86.16 Personal history of COVID-19; K58.9 Irritable bowel syndrome, unspecified; D64.9 Anemia, unspecified; E83.9 Disorder of mineral metabolism, unspecified; M89.9 Disorder of bone, unspecified; F10.10 Alcohol abuse, uncomplicated; R53.81 Other malaise ==

== ENCOUNTER 2022-03-01 10:00 | Outpatient (CLI) | payer MEDICARE, OTHER | END 2022-03-01 23:59 | disposition home or self-care (01) | LOC: MSC 10:00 | PROVIDERS: ATTEND Internal Medicine | DX: R06.02 Shortness of breath (principal); R53.83 Other fatigue; R42 Dizziness and giddiness; R10.13 Epigastric pain; A04.9 Bacterial intestinal infection, unspecified; N28.89 Other specified disorders of kidney and ureter; M21.962 Unspecified acquired deformity of left lower leg; M10.9 Gout, unspecified; E87.1 Hypo-osmolality and hyponatremia; G89.29 Other chronic pain; K40.90 Unilateral inguinal hernia, without obstruction or gangrene, not specified as recurrent; M54.9 Dorsalgia, unspecified; I12.9 Hypertensive chronic kidney disease with stage 1 through stage 4 chronic kidney disease, or unspecified chronic kidney disease; N18.4 Chronic kidney disease, stage 4 (severe); N17.9 Acute kidney failure, unspecified; Z86.16 Personal history of COVID-19; K58.9 Irritable bowel syndrome, unspecified; D64.9 Anemia, unspecified; E83.9 Disorder of mineral metabolism, unspecified; M89.9 Disorder of bone, unspecified; F10.10 Alcohol abuse, uncomplicated ==

== ENCOUNTER → 2022-03-09 | Outpatient (CLI) | payer MEDICARE, OTHER | END | disposition home or self-care (01) | LOC: MSC 14:00 | PROVIDERS: ATTEND Internal Medicine | DX: I51.9 Heart disease, unspecified (principal); R42 Dizziness and giddiness; R10.13 Epigastric pain; A04.9 Bacterial intestinal infection, unspecified; N28.89 Other specified disorders of kidney and ureter; M1A.9XX1 Chronic gout, unspecified, with tophus (tophi); M21.962 Unspecified acquired deformity of left lower leg; E87.1 Hypo-osmolality and hyponatremia; G89.29 Other chronic pain; K40.90 Unilateral inguinal hernia, without obstruction or gangrene, not specified as recurrent; M54.9 Dorsalgia, unspecified; I12.9 Hypertensive chronic kidney disease with stage 1 through stage 4 chronic kidney disease, or unspecified chronic kidney disease; N18.4 Chronic kidney disease, stage 4 (severe); N17.9 Acute kidney failure, unspecified; Z86.16 Personal history of COVID-19; K58.9 Irritable bowel syndrome, unspecified; D64.9 Anemia, unspecified; E83.9 Disorder of mineral metabolism, unspecified; M89.9 Disorder of bone, unspecified; R53.81 Other malaise; F10.10 Alcohol abuse, uncomplicated ==

== ENCOUNTER 2022-03-20 09:00 | Outpatient (CLI) | payer MEDICARE, OTHER | END 2022-03-20 23:59 | disposition home or self-care (01) | LOC: MSC 09:00 | PROVIDERS: ATTEND Internal Medicine | DX: R05.9 Cough, unspecified (principal); I51.9 Heart disease, unspecified; R42 Dizziness and giddiness; R10.13 Epigastric pain; A04.9 Bacterial intestinal infection, unspecified; N28.89 Other specified disorders of kidney and ureter; M1A.9XX1 Chronic gout, unspecified, with tophus (tophi); M21.962 Unspecified acquired deformity of left lower leg; E87.1 Hypo-osmolality and hyponatremia; G89.29 Other chronic pain; K40.90 Unilateral inguinal hernia, without obstruction or gangrene, not specified as recurrent; M54.9 Dorsalgia, unspecified; I12.9 Hypertensive chronic kidney disease with stage 1 through stage 4 chronic kidney disease, or unspecified chronic kidney disease; N18.4 Chronic kidney disease, stage 4 (severe); N17.9 Acute kidney failure, unspecified; Z86.16 Personal history of COVID-19; K58.9 Irritable bowel syndrome, unspecified; D64.9 Anemia, unspecified; E83.9 Disorder of mineral metabolism, unspecified; M89.9 Disorder of bone, unspecified; R53.81 Other malaise; F10.10 Alcohol abuse, uncomplicated ==

== ENCOUNTER 2022-04-04 14:30 | Outpatient (CLI) | payer MEDICARE, OTHER | END 2022-04-04 23:59 | disposition home or self-care (01) | LOC: MSC 14:30 | PROVIDERS: ATTEND Internal Medicine | DX: I51.9 Heart disease, unspecified (principal); R42 Dizziness and giddiness; R10.13 Epigastric pain; A04.9 Bacterial intestinal infection, unspecified; N28.89 Other specified disorders of kidney and ureter; M1A.9XX1 Chronic gout, unspecified, with tophus (tophi); M21.962 Unspecified acquired deformity of left lower leg; E87.1 Hypo-osmolality and hyponatremia; G89.29 Other chronic pain; K40.90 Unilateral inguinal hernia, without obstruction or gangrene, not specified as recurrent; M54.9 Dorsalgia, unspecified; I12.9 Hypertensive chronic kidney disease with stage 1 through stage 4 chronic kidney disease, or unspecified chronic kidney disease; N18.4 Chronic kidney disease, stage 4 (severe); N17.9 Acute kidney failure, unspecified; Z86.16 Personal history of COVID-19; K58.9 Irritable bowel syndrome, unspecified; D64.9 Anemia, unspecified; E83.9 Disorder of mineral metabolism, unspecified; M89.9 Disorder of bone, unspecified; R53.81 Other malaise; F10.10 Alcohol abuse, uncomplicated ==

== ENCOUNTER 2022-05-29 11:00 | Outpatient (CLI) | payer MEDICARE, OTHER | END 2022-05-29 23:59 | disposition home or self-care (01) | LOC: MSC 11:00 | PROVIDERS: ATTEND Internal Medicine | DX: M10.9 Gout, unspecified (principal); M21.962 Unspecified acquired deformity of left lower leg; I51.9 Heart disease, unspecified; R42 Dizziness and giddiness; R10.13 Epigastric pain; A04.9 Bacterial intestinal infection, unspecified; N28.89 Other specified disorders of kidney and ureter; G89.29 Other chronic pain; K40.90 Unilateral inguinal hernia, without obstruction or gangrene, not specified as recurrent; M54.9 Dorsalgia, unspecified; I12.9 Hypertensive chronic kidney disease with stage 1 through stage 4 chronic kidney disease, or unspecified chronic kidney disease; N18.4 Chronic kidney disease, stage 4 (severe); N17.9 Acute kidney failure, unspecified; Z86.16 Personal history of COVID-19; K58.9 Irritable bowel syndrome, unspecified; D64.9 Anemia, unspecified; E83.9 Disorder of mineral metabolism, unspecified; M89.9 Disorder of bone, unspecified; R53.81 Other malaise; F10.10 Alcohol abuse, uncomplicated ==

== ENCOUNTER 2022-06-01 10:45 | Outpatient (CLI) | payer MEDICARE, OTHER | END 2022-06-01 23:59 | disposition home or self-care (01) | LOC: MSC 10:45 | PROVIDERS: ATTEND Internal Medicine | DX: I12.9 Hypertensive chronic kidney disease with stage 1 through stage 4 chronic kidney disease, or unspecified chronic kidney disease (principal); N18.4 Chronic kidney disease, stage 4 (severe); N17.9 Acute kidney failure, unspecified; E78.1 Pure hyperglyceridemia; E55.9 Vitamin D deficiency, unspecified; R73.03 Prediabetes; M10.9 Gout, unspecified; M21.962 Unspecified acquired deformity of left lower leg; I51.9 Heart disease, unspecified; R42 Dizziness and giddiness; R10.13 Epigastric pain; A04.9 Bacterial intestinal infection, unspecified; N28.89 Other specified disorders of kidney and ureter; G89.29 Other chronic pain; K40.90 Unilateral inguinal hernia, without obstruction or gangrene, not specified as recurrent; M54.9 Dorsalgia, unspecified; Z86.16 Personal history of COVID-19; K58.9 Irritable bowel syndrome, unspecified; D64.9 Anemia, unspecified; E83.9 Disorder of mineral metabolism, unspecified; M89.9 Disorder of bone, unspecified; R53.81 Other malaise; F10.10 Alcohol abuse, uncomplicated ==

== ENCOUNTER → 2022-06-08 | Outpatient (CLI) | payer MEDICARE, OTHER | END | disposition home or self-care (01) | LOC: MSC 14:30 | PROVIDERS: ATTEND Internal Medicine | DX: R10.9 Unspecified abdominal pain (principal); M79.672 Pain in left foot; M1A.9XX1 Chronic gout, unspecified, with tophus (tophi); M21.962 Unspecified acquired deformity of left lower leg; R73.03 Prediabetes; I12.9 Hypertensive chronic kidney disease with stage 1 through stage 4 chronic kidney disease, or unspecified chronic kidney disease; N18.4 Chronic kidney disease, stage 4 (severe); E55.9 Vitamin D deficiency, unspecified; E78.1 Pure hyperglyceridemia; R42 Dizziness and giddiness; R10.13 Epigastric pain; A04.9 Bacterial intestinal infection, unspecified; N28.89 Other specified disorders of kidney and ureter; G89.29 Other chronic pain; K40.90 Unilateral inguinal hernia, without obstruction or gangrene, not specified as recurrent; M54.9 Dorsalgia, unspecified; Z86.16 Personal history of COVID-19; K58.9 Irritable bowel syndrome, unspecified; D64.9 Anemia, unspecified; E83.9 Disorder of mineral metabolism, unspecified; M89.9 Disorder of bone, unspecified; R53.81 Other malaise; F10.10 Alcohol abuse, uncomplicated ==

== ENCOUNTER 2022-06-19 10:30 | Outpatient (CLI) | payer MEDICARE, OTHER | END 2022-06-19 23:59 | disposition home or self-care (01) | LOC: MSC 10:30 | PROVIDERS: ATTEND Internal Medicine | DX: N20.0 Calculus of kidney (principal); N28.89 Other specified disorders of kidney and ureter; I12.9 Hypertensive chronic kidney disease with stage 1 through stage 4 chronic kidney disease, or unspecified chronic kidney disease; N18.4 Chronic kidney disease, stage 4 (severe); R10.9 Unspecified abdominal pain; M79.672 Pain in left foot; M1A.9XX1 Chronic gout, unspecified, with tophus (tophi); M21.962 Unspecified acquired deformity of left lower leg; R73.03 Prediabetes; I51.9 Heart disease, unspecified; E55.9 Vitamin D deficiency, unspecified; R42 Dizziness and giddiness; R10.13 Epigastric pain; A04.9 Bacterial intestinal infection, unspecified; G89.29 Other chronic pain; K40.90 Unilateral inguinal hernia, without obstruction or gangrene, not specified as recurrent; M54.9 Dorsalgia, unspecified; Z86.16 Personal history of COVID-19; K58.9 Irritable bowel syndrome, unspecified; D64.9 Anemia, unspecified; E83.9 Disorder of mineral metabolism, unspecified; M89.9 Disorder of bone, unspecified; R53.81 Other malaise; F10.10 Alcohol abuse, uncomplicated ==

== ENCOUNTER 2022-07-31 10:00 | Outpatient (CLI) | payer MEDICARE, OTHER | END 2022-07-31 23:59 | disposition home or self-care (01) | LOC: MSC 10:00 | PROVIDERS: ATTEND Internal Medicine | DX: K58.9 Irritable bowel syndrome, unspecified (principal); N20.0 Calculus of kidney; N28.89 Other specified disorders of kidney and ureter; I12.9 Hypertensive chronic kidney disease with stage 1 through stage 4 chronic kidney disease, or unspecified chronic kidney disease; N18.4 Chronic kidney disease, stage 4 (severe); M79.672 Pain in left foot; M1A.9XX1 Chronic gout, unspecified, with tophus (tophi); M21.962 Unspecified acquired deformity of left lower leg; R73.03 Prediabetes; I51.9 Heart disease, unspecified; E55.9 Vitamin D deficiency, unspecified; R42 Dizziness and giddiness; R10.13 Epigastric pain; A04.9 Bacterial intestinal infection, unspecified; G89.29 Other chronic pain; K40.90 Unilateral inguinal hernia, without obstruction or gangrene, not specified as recurrent; M54.9 Dorsalgia, unspecified; Z86.16 Personal history of COVID-19; D64.9 Anemia, unspecified; E83.9 Disorder of mineral metabolism, unspecified; M89.9 Disorder of bone, unspecified; R53.81 Other malaise; F10.10 Alcohol abuse, uncomplicated ==

== ENCOUNTER → 2022-08-21 | Outpatient (CLI) | payer MEDICARE, OTHER | END | disposition home or self-care (01) | LOC: MSC 14:00 | PROVIDERS: ATTEND Internal Medicine | DX: J06.9 Acute upper respiratory infection, unspecified (principal); K58.9 Irritable bowel syndrome, unspecified; N20.0 Calculus of kidney; N28.89 Other specified disorders of kidney and ureter; I12.9 Hypertensive chronic kidney disease with stage 1 through stage 4 chronic kidney disease, or unspecified chronic kidney disease; N18.9 Chronic kidney disease, unspecified; R10.9 Unspecified abdominal pain; M1A.9XX1 Chronic gout, unspecified, with tophus (tophi); M21.962 Unspecified acquired deformity of left lower leg; R73.03 Prediabetes; I51.9 Heart disease, unspecified; E55.9 Vitamin D deficiency, unspecified; R42 Dizziness and giddiness; R10.13 Epigastric pain; A04.9 Bacterial intestinal infection, unspecified; Z86.16 Personal history of COVID-19; D64.9 Anemia, unspecified; R53.81 Other malaise; M54.9 Dorsalgia, unspecified; F10.10 Alcohol abuse, uncomplicated ==

== ENCOUNTER → 2022-08-29 | Outpatient (CLI) | payer MEDICARE, OTHER | END | disposition home or self-care (01) | LOC: MSC 15:00 | PROVIDERS: ATTEND Internal Medicine | DX: M79.645 Pain in left finger(s) (principal); M25.442 Effusion, left hand; J06.9 Acute upper respiratory infection, unspecified; K58.9 Irritable bowel syndrome, unspecified; N28.89 Other specified disorders of kidney and ureter; I12.9 Hypertensive chronic kidney disease with stage 1 through stage 4 chronic kidney disease, or unspecified chronic kidney disease; N18.9 Chronic kidney disease, unspecified; R10.9 Unspecified abdominal pain; M1A.9XX1 Chronic gout, unspecified, with tophus (tophi); M21.962 Unspecified acquired deformity of left lower leg; R73.03 Prediabetes; I51.9 Heart disease, unspecified; E55.9 Vitamin D deficiency, unspecified; R42 Dizziness and giddiness; R10.13 Epigastric pain; Z86.16 Personal history of COVID-19; D64.9 Anemia, unspecified; F10.10 Alcohol abuse, uncomplicated ==

== ENCOUNTER → 2022-09-05 | Outpatient (CLI) | payer MEDICARE, OTHER ==
[~2022-09-05] MED LIST: CYCLOBENZAPRINE 10 MG TABLET ONE; IBUPROFEN 600 MG TABLET ONE
== END | disposition home or self-care (01) ==
LOC: MSC 14:30
PROVIDERS: ATTEND Internal Medicine
DX: M1A.0421 Idiopathic chronic gout, left hand, with tophus (tophi) (principal); K58.8 Other irritable bowel syndrome; J06.9 Acute upper respiratory infection, unspecified; N28.89 Other specified disorders of kidney and ureter; I12.9 Hypertensive chronic kidney disease with stage 1 through stage 4 chronic kidney disease, or unspecified chronic kidney disease; N18.9 Chronic kidney disease, unspecified; R10.9 Unspecified abdominal pain; M1A.0720 Idiopathic chronic gout, left ankle and foot, without tophus (tophi); M21.962 Unspecified acquired deformity of left lower leg; R73.03 Prediabetes; I51.9 Heart disease, unspecified; E55.9 Vitamin D deficiency, unspecified; R42 Dizziness and giddiness; R10.13 Epigastric pain; Z86.16 Personal history of COVID-19; D64.9 Anemia, unspecified; F10.10 Alcohol abuse, uncomplicated

== ENCOUNTER → 2022-09-12 | Outpatient (CLI) | payer MEDICARE, OTHER | END | disposition home or self-care (01) | LOC: MSC 14:30 | PROVIDERS: ATTEND Internal Medicine | DX: R10.9 Unspecified abdominal pain (principal); Z87.19 Personal history of other diseases of the digestive system; K58.8 Other irritable bowel syndrome; J06.9 Acute upper respiratory infection, unspecified; N28.89 Other specified disorders of kidney and ureter; I13.10 Hypertensive heart and chronic kidney disease without heart failure, with stage 1 through stage 4 chronic kidney disease, or unspecified chronic kidney disease; N18.9 Chronic kidney disease, unspecified; M1A.0721 Idiopathic chronic gout, left ankle and foot, with tophus (tophi); M21.962 Unspecified acquired deformity of left lower leg; R73.03 Prediabetes; E55.9 Vitamin D deficiency, unspecified; D64.9 Anemia, unspecified; R42 Dizziness and giddiness; F10.10 Alcohol abuse, uncomplicated; Z86.16 Personal history of COVID-19 ==

== ENCOUNTER 2023-02-07 10:00 | Outpatient (CLI) | payer MEDICARE, OTHER | END 2023-02-07 23:59 | disposition home or self-care (01) | LOC: MSC 10:00 | PROVIDERS: ATTEND Internal Medicine | DX: K58.1 Irritable bowel syndrome with constipation (principal); R10.9 Unspecified abdominal pain; Z87.19 Personal history of other diseases of the digestive system; M1A.0721 Idiopathic chronic gout, left ankle and foot, with tophus (tophi); M21.962 Unspecified acquired deformity of left lower leg; M1A.0421 Idiopathic chronic gout, left hand, with tophus (tophi); J06.9 Acute upper respiratory infection, unspecified; Z86.16 Personal history of COVID-19; N28.89 Other specified disorders of kidney and ureter; I13.10 Hypertensive heart and chronic kidney disease without heart failure, with stage 1 through stage 4 chronic kidney disease, or unspecified chronic kidney disease; N18.9 Chronic kidney disease, unspecified; R73.03 Prediabetes; E55.9 Vitamin D deficiency, unspecified; D64.9 Anemia, unspecified; R42 Dizziness and giddiness; F10.10 Alcohol abuse, uncomplicated; G89.29 Other chronic pain ==

== ENCOUNTER 2023-06-06 15:00 | Outpatient (CLI) | payer MEDICARE, OTHER | END 2023-06-06 23:59 | disposition home or self-care (01) | LOC: MSC 15:00 | PROVIDERS: ATTEND Internal Medicine | DX: I11.9 Hypertensive heart disease without heart failure (principal); E78.1 Pure hyperglyceridemia; K02.9 Dental caries, unspecified; R10.9 Unspecified abdominal pain; K58.9 Irritable bowel syndrome, unspecified; Z87.19 Personal history of other diseases of the digestive system; M1A.0721 Idiopathic chronic gout, left ankle and foot, with tophus (tophi); M21.962 Unspecified acquired deformity of left lower leg; R53.81 Other malaise; M1A.0421 Idiopathic chronic gout, left hand, with tophus (tophi); J06.9 Acute upper respiratory infection, unspecified; Z86.16 Personal history of COVID-19; R73.03 Prediabetes; E55.9 Vitamin D deficiency, unspecified; D64.9 Anemia, unspecified; R42 Dizziness and giddiness; F10.10 Alcohol abuse, uncomplicated; G89.29 Other chronic pain ==

== ENCOUNTER → 2025-04-09 | Outpatient (CLI) | payer MEDICARE, OTHER | END | disposition home or self-care (01) | LOC: MSC 15:00 | PROVIDERS: ATTEND Internal Medicine | DX: I12.9 Hypertensive chronic kidney disease with stage 1 through stage 4 chronic kidney disease, or unspecified chronic kidney disease (principal); N18.4 Chronic kidney disease, stage 4 (severe); S90.414D Abrasion, right lesser toe(s), subsequent encounter; R97.20 Elevated prostate specific antigen [PSA]; M1A.0711 Idiopathic chronic gout, right ankle and foot, with tophus (tophi); M21.6X1 Other acquired deformities of right foot; N28.89 Other specified disorders of kidney and ureter; K59.00 Constipation, unspecified; R10.13 Epigastric pain; K40.90 Unilateral inguinal hernia, without obstruction or gangrene, not specified as recurrent; K58.9 Irritable bowel syndrome, unspecified; D64.9 Anemia, unspecified; E83.9 Disorder of mineral metabolism, unspecified; F10.10 Alcohol abuse, uncomplicated ==

== ENCOUNTER 2025-04-20 10:36 | Outpatient (CLI) | payer MEDICARE, OTHER | END 2025-04-20 23:59 | disposition home or self-care (01) | LOC: WOU 10:36 | PROVIDERS: ATTEND Podiatrist Foot & Ankle Surgery | DX: L03.031 Cellulitis of right toe (principal); M21.171 Varus deformity, not elsewhere classified, right ankle; M79.671 Pain in right foot; L60.3 Nail dystrophy; B35.3 Tinea pedis; I10 Essential (primary) hypertension | CPT/HCPCS: 11042; 73600; 73630; 73650; A4649 ==